=== PATIENT | male | born 1975 | race Caucasian/White ===

== ENCOUNTER 2022-09-11 05:59 | Day surgery (SDC) | payer OTHER ==
[2022-09-08 11:58] VITALS: BMI 28.8
[2022-09-11] MEDS ORDERED: oxyCODONE HCL 5 MG TABLET PO PRN ×2 (06:48)
[2022-09-11] MEDS ORDERED: ONDANSETRON 4 MG/2 ML VIAL IVPUSH PRN (06:48)
[2022-09-11] MEDS ORDERED: ACETAMINOPHEN 325 MG TABLET (FP) PO PRN (06:48)
[2022-09-11] MEDS ORDERED: LACTATED RINGERS SOLUTION 1,000 ML IV SCH (07:00)
[2022-09-11] MEDS ORDERED: FENTANYL CITRATE/PF 50 MCG/ML VIAL ONE (07:08)
[2022-09-11] MEDS ORDERED: MIDAZOLAM HCL 2 MG/2 ML SINGLE DOSE VIAL ONE (07:08)
[2022-09-11] MEDS ORDERED: BUPIVACAINE HCL/PF 0.5% (5 MG/ML) 30 ML VIAL IJ ONE (07:08)
[2022-09-11] MEDS ORDERED: DEXAMETHASONE SOD PHOSPHATE 10 MG/1 ML VIAL ONE (07:09)
[2022-09-11] MEDS ORDERED: ACETAMINOPHEN INJECTION 100 ML IVPB ONE (07:09)
[2022-09-11] MEDS ORDERED: PROPOFOL 40 ML ONE (07:51)
[2022-09-11] MEDS ORDERED: KETOROLAC TROMETHAMINE 30 MG/1 ML VIAL ONE (08:18)
[2022-09-11] MEDS ORDERED: ONDANSETRON 4 MG/2 ML VIAL ONE (08:18)
[2022-09-11] MEDS ORDERED: DEXAMETHASONE SOD PHOSPHATE 4 MG/1 ML VIAL ONE (08:18)
[2022-09-11] MEDS ORDERED: oxyCODONE HCL 5 MG TABLET ONE (10:32)
[2022-09-11 16:40] VITALS: TEMP 97.3
[2022-09-11 16:54] VITALS: RESP 16
[2022-09-11 17:13] VITALS: BP 144/65; PULSE 82
== END 2022-09-11 11:41 | disposition home or self-care (01) ==
LOC: FASU 05:59
PROVIDERS: ATTEND Orthopaedic Surgery
PROC: 0LS44ZZ Reposition Left Upper Arm Tendon, Percutaneous Endoscopic Approach (ICD-10-PCS; 2022-09-11)
PROC: 0RBK4ZZ Excision of Left Shoulder Joint, Percutaneous Endoscopic Approach (ICD-10-PCS; 2022-09-11)
PROC: 0PBB4ZZ Excision of Left Clavicle, Percutaneous Endoscopic Approach (ICD-10-PCS; 2022-09-11)
PROC: 0LS44ZZ Reposition Left Upper Arm Tendon, Percutaneous Endoscopic Approach (ICD-10-PCS; principal; 2022-09-11 08:18)
DX: M75.102 Unspecified rotator cuff tear or rupture of left shoulder, not specified as traumatic (principal); S46.212A Strain of muscle, fascia and tendon of other parts of biceps, left arm, initial encounter; M75.02 Adhesive capsulitis of left shoulder; M75.42 Impingement syndrome of left shoulder; M19.012 Primary osteoarthritis, left shoulder; S43.432A Superior glenoid labrum lesion of left shoulder, initial encounter; X58.XXXA Exposure to other specified factors, initial encounter; Y93.9 Activity, unspecified; Y92.9 Unspecified place or not applicable; M65.812 Other synovitis and tenosynovitis, left shoulder
CPT/HCPCS: 94760; C1713; J1100